=== PATIENT | male | born 1975 | race African-American/Black ===

== ENCOUNTER 2022-02-05 15:42 | Observation (INO) ==
[2022-02-05] MEDS ORDERED: DILAUDID INJ ONE ×2 (16:02→19:26)
[2022-02-05] MEDS ORDERED: DILAUDID INJ IVP ONE (16:03)
[2022-02-05] MEDS ORDERED: ZOFRAN INJ 4 MG VIAL IVP ONE (16:03)
[2022-02-05] MEDS ORDERED: ZOFRAN INJ 4 MG VIAL ONE ×2 (16:03→19:26)
--- NOTE | 2022-02-05 16:09 | DR.GENAD ---
HPI Time Seen Time Seen by Provider: 02/05/22 16:08 PCP Primary Care Physician: MARIXA Complaint/Symptoms Chief Complaint:: PT. C/O RIGHT INGUINAL HERNIA PAIN. PT. STATES HE HAS HAD IT FOR A WHILE BUT THE PAIN GOT SEVERE SHOWER DOORS AND PANELS FABRICATOR. COVID-19 Coronavirus risk:travel/contact w/high risk person: No Has patient experienced Coronavirus symptoms: No Source History Provided: Patient Mode of Arrival Mode of Arrival: Ambulatory Timing Onset of Chief Complaint: 02/05/22 PMH PMH Past Medical History: Yes Past Medical History: Depression and Hypertension Past Surgical History: No Surgical History: No History Family History History of Family Medical Conditions: Yes Family Medical History: Hypertension Social History Does patient currently use any type of tobacco product: No Have you used tobacco products in the last 12 months: No Type of Tobacco Use: None Does any household member use tobacco: No Alcohol Use: None Do you use any recreational Drugs:: No Lives With: Family Lives Where: Home Travel Risk Coronavirus risk:travel/contact w/high risk person: No Has patient experienced Coronavirus symptoms: No Infectious screening In the last 2 months have you had wt loss of >10#?: NO Have you had fever, night sweats or hemotysis?: No Have you traveled outside the country in the last 6 months?: No Isolation: Standard PE Vital Signs Vitals: Temperature 97.6 F Pulse Rate [Left Radial] 96 Pulse Rate 94 Respiratory Rate 25 Blood Pressure [Left Arm] 134/83 Blood Pressure 150/91 O2 Sat by Pulse Oximetry 99 ROR Labs Reviewed Result Diagrams: 02/05/22 15:55 02/05/22 15:55 Laboratory: WBC 6.0 X10^3/uL (3.6-10.0) 02/05/22 15:55 RBC 4.48 X10^6/uL (4.7-6.0) L 02/05/22 15:55 Hgb 13.9 g/dL (13.5-18.0) 02/05/22 15:55 Hct 40.1 % (42.0-54.0) L 02/05/22 15:55 MCV 89.5 fL (80.0-100.0) 02/05/22 15:55 MCH 31.0 pg (27.0-34.0) 02/05/22 15:55 MCHC 34.7 g/dL (33.0-35.0) 02/05/22 15:55 RDW 13.6 % (11.6-16.5) 02/05/22 15:55 Plt Count 242 X10^3/uL (150.0-450.0) 02/05/22 15:55 MPV 7.9 fL (7.4-11.0) 02/05/22 15:55 Neut % (Auto) 39.1 % (42.0-75.0) L 02/05/22 15:55 Lymph % (Auto) 44.1 % (21.0-51.0) 02/05/22 15:55 [place]mers % (Auto) 11.4 % (0.0-13.0) 02/05/22 15:55 Eos % (Auto) 4.9 % (0.9-2.9) H 02/05/22 15:55 Baso % (Auto) 0.5 % (0.2-1.0) 02/05/22 15:55 Neut # (Auto) 2.3 x10^3/uL (2.2-4.8) 02/05/22 15:55 Lymph # (Auto) 2.6 X10^3/uL (1.3-2.9) 02/05/22 15:55 Summers # (Auto) 0.7 x10^3/uL (0.3-0.8) 02/05/22 15:55 Eos # (Auto) 0.3 x10^3/uL (0.0-0.2) H 02/05/22 15:55 Baso # (Auto) 0.0 X10^3/uL (0.0-0.1) 02/05/22 15:55 Absolute Nucleated RBC 0.1 /100WBC 02/05/22 15:55 Sodium 139 mmol/L (136-145) 02/05/22 15:55 Corrected Sodium 139 mmol/L (136-145) 02/05/22 15:55 Potassium 4.2 mmol/L (3.5-5.1) 02/05/22 15:55 Chloride 105 mmol/L (98-107) 02/05/22 15:55 Carbon Dioxide 24.5 mmol/L (21-32) 02/05/22 15:55 BUN 14 mg/dL (7-18) 02/05/22 15:55 Creatinine 1.10 mg/dL (0.70-1.30) 02/05/22 15:55 Est GFR (MDRD) Af Amer > 60 (>60) 02/05/22 15:55 Est GFR (MDRD) Non-Af > 60 (>60) 02/05/22 15:55 Glucose 114 mg/dL (65-99) H 02/05/22 15:55 Calcium 8.5 mg/dL (8.5-10.1) 02/05/22 15:55 Corrected Calcium TNP 02/05/22 15:55 Total Bilirubin 0.30 mg/dL (0.2-1.0) 02/05/22 15:55 AST 34 Units/L (15-37) 02/05/22 15:55 ALT 60 Units/L (12-78) 02/05/22 15:55 Alkaline Phosphatase 79 Units/L (46-116) 02/05/22 15:55 Total Protein 8.0 g/dL (6.4-8.2) 02/05/22 15:55 Albumin 3.9 g/dL (3.4-5.0) 02/05/22 15:55 Globulin 4.1 g/dL (2.5-4.5) 02/05/22 15:55 Albumin/Globulin Ratio 1.0 Ratio (1.1-2.1) L 02/05/22 15:55 Amylase 91 Units/L (25-115) 02/05/22 15:55 Lipase 234 Units/L (73-393) 02/05/22 15:55 Opioid Opioid Risk Tool Age (Ramin box if 16-45): Yes History of Preadolescent Sexual Abuse: No Total: 1 Total Score Risk Category: Low Risk Copyright: Jase ELIZABETH predicting aberrant behaviors Discharge Plan Discharge Plan Patient Disposition: 01 HOME, SELF-CARE Condition: Stable Prescriptions: No Action clonidine HCl 0.1 mg tablet 1 tab PO QPM trazodone 50 mg tablet 1 tab PO QPM prazosin 1 mg capsule 1 cap PO QPM lisinopril 20 mg tablet 1 tab PO QDAY hydroxyzine pamoate 50 mg capsule 1 cap PO TID sertraline 50 mg tablet 1 tab PO QDAY Health Concerns: Post Hospitalization: new medications and changes needed to prevent readmission or further decline. Pt educated and given instructions on all concerns. Plan of Treatment: Continue with present treatment and follow up plan. Pt is to keep follow up appointment as instructed and take medications as ordered. Orders to Discharge Patient Discharge Orders: Transfer (Routine); Ordered 02/05/22 Ordered By: MYRA SHANKS Follow ups/Referrals Follow ups/Referrals: NFD,None [Primary Care Provider] - 3 days Instructions Stand Alone Forms: Precautions for COVID19, [facility], Patient Portal, Social Distancing
[2022-02-05] MEDS ORDERED: NS 1,000 ML IV 1,000 ML ONE (16:20)
[2022-02-05 16:26] LABS: BASOPHILS % (AUTO) 0.5 % (0.2-1.0); EOSINOPHILS # (AUTO) 0.3 x10^3/uL (0.0-0.2); EOSINOPHILS % (AUTO) 4.9 % (0.9-2.9); HEMATOCRIT 40.1 % (42.0-54.0); HEMOGLOBIN 13.9 g/dL (13.5-18.0); LYMPHOCYTES # (AUTO) 2.6 X10^3/uL (1.3-2.9); LYMPHOCYTES % (AUTO) 44.1 % (21.0-51.0); MEAN CORPUSCULAR HGB CONC 34.7 g/dL (33.0-35.0); MEAN CORPUSCULAR VOLUME 89.5 fL (80.0-100.0); MEAN PLATELET VOLUME 7.9 fL (7.4-11.0); MONOCYTES # (AUTO) 0.7 x10^3/uL (0.3-0.8); MONOCYTES % (AUTO) 11.4 % (0.0-13.0); NEUTROPHILS # (AUTO) 2.3 x10^3/uL (2.2-4.8); NEUTROPHILS % (AUTO) 39.1 % (42.0-75.0); RED BLOOD COUNT 4.48 X10^6/uL (4.7-6.0); RED CELL DISTRIBUTION WIDTH 13.6 % (11.6-16.5)
[2022-02-05 16:33] LABS: AMYLASE 91 Units/L (25-115); LIPASE 234 Units/L (73-393)
[2022-02-05 16:36] LABS: ALANINE AMINOTRANSFERASE 60 Units/L (12-78); ALBUMIN 3.9 g/dL (3.4-5.0); ALKALINE PHOSPHATASE 79 Units/L (46-116); ASPARTATE AMINO TRANSFERASE 34 Units/L (15-37); BLOOD UREA NITROGEN 14 mg/dL (7-18); CALCIUM 8.5 mg/dL (8.5-10.1); CARBON DIOXIDE 24.5 mmol/L (21-32); CHLORIDE 105 mmol/L (98-107); COR NA(FOR HYPERGLY) 139 mmol/L (136-145); SODIUM 139 mmol/L (136-145); eGFR NON BLACK RACES > 60 (>60)
[2022-02-05] MEDS ORDERED: NS 1,000 ML IV 1,000 ML IV SCH (17:00)
--- NOTE | 2022-02-05 18:00 | RAD ---
HISTORYPRE OP HERNIA Relevant Clinical InformationSTUDYCHEST, 1 VIEWCOMPARISONFINDINGSThe trachea is midline. The cardiac silhouette is unremarkable. The lungs are clear without focal infiltrate or effusion. The bony thorax is unremarkable.IMPRESSIONNo acute cardiopulmonary findings .Electronically signed by: Vitor Astorga (Feb 05, 2022 17:58:14)
[2022-02-05 18:27] LABS: BILIRUBIN,URINE NEGATIVE (NEGATIVE); BLOOD/HEMOGLOBIN,URINE NEGATIVE (NEGATIVE); GLUCOSE, URINE NEGATIVE (NEGATIVE); KETONES,URINE NEGATIVE (NEGATIVE); LEUKOCYTE ESTERASE ,URINE NEGATIVE (NEGATIVE); NITRITES,URINE NEGATIVE (NEGATIVE); PROTEIN,URINE NEGATIVE (NEGATIVE); UROBILINOGEN,URINE NORMAL (NORMAL)
[2022-02-05 18:30] LABS: COLOR,URINE YELLOW (YELLOW)
[2022-02-05 18:31] LABS: APPEARANCE,URINE CLEAR (CLEAR)
[2022-02-05] MEDS: DILAUDID INJ IVP PRN ×2 (19:32→23:37)
[2022-02-05] MEDS: ZOFRAN INJ 4 MG VIAL IVP PRN ×2 (19:32→23:38)
[2022-02-05] MEDS: D5 1/2 NS 1,000 ML 1,000 ML IV SCH (20:11)
[2022-02-05] MEDS ORDERED: ZESTRIL TAB 20 MG ONE (21:24)
[2022-02-05] MEDS: ZOLOFT PO SCH (21:28)
[2022-02-05] MEDS: VISTARIL PO SCH (21:29)
[2022-02-05] MEDS: ZESTRIL TAB 20 MG PO SCH (21:31)
[2022-02-05] MEDS: DESYREL PO SCH (21:32)
[2022-02-05] MEDS: CATAPRES TAB 0.1 MG PO SCH (21:33)
[2022-02-05] MEDS: ANCEF VIAL 1 GRAM IVP SCH (21:39)
[2022-02-05 22:35] VITALS: BMI 26.2
[2022-02-06] MEDS: D5 1/2 NS 1,000 ML 1,000 ML IV SCH ×5 (02:39→21:30)
[2022-02-06] MEDS: DILAUDID INJ IVP PRN ×5 (04:18→22:40)
[2022-02-06] MEDS: ANCEF VIAL 1 GRAM IVP SCH ×3 (05:17→21:01)
[2022-02-06] MEDS: VISTARIL PO SCH ×3 (05:18→21:01)
[2022-02-06 05:58] LABS: BASOPHILS % (AUTO) 0.4 % (0.2-1.0); EOSINOPHILS # (AUTO) 0.1 x10^3/uL (0.0-0.2); EOSINOPHILS % (AUTO) 0.9 % (0.9-2.9); HEMATOCRIT 36.9 % (42.0-54.0); LYMPHOCYTES # (AUTO) 1.4 X10^3/uL (1.3-2.9); LYMPHOCYTES % (AUTO) 19.4 % (21.0-51.0); MEAN CORPUSCULAR HEMOGLOBIN 31.3 pg (27.0-34.0); MEAN CORPUSCULAR HGB CONC 35.1 g/dL (33.0-35.0); MEAN CORPUSCULAR VOLUME 89.2 fL (80.0-100.0); MEAN PLATELET VOLUME 8.1 fL (7.4-11.0); MONOCYTES # (AUTO) 0.6 x10^3/uL (0.3-0.8); MONOCYTES % (AUTO) 8.2 % (0.0-13.0); NEUTROPHILS # (AUTO) 5.1 x10^3/uL (2.2-4.8); NEUTROPHILS % (AUTO) 71.1 % (42.0-75.0); RED BLOOD COUNT 4.14 X10^6/uL (4.7-6.0); RED CELL DISTRIBUTION WIDTH 13.7 % (11.6-16.5); WHITE BLOOD COUNT 7.2 X10^3/uL (3.6-10.0)
[2022-02-06 06:04] LABS: ALANINE AMINOTRANSFERASE 50 Units/L (12-78); ALBUMIN 3.7 g/dL (3.4-5.0); ALKALINE PHOSPHATASE 66 Units/L (46-116); ASPARTATE AMINO TRANSFERASE 27 Units/L (15-37); BLOOD UREA NITROGEN 13 mg/dL (7-18); CALCIUM 8.3 mg/dL (8.5-10.1); CARBON DIOXIDE 22.6 mmol/L (21-32); CHLORIDE 105 mmol/L (98-107); COR NA(FOR HYPERGLY) 137 mmol/L (136-145); CREATININE 0.96 mg/dL (0.70-1.30); SODIUM 137 mmol/L (136-145); TOTAL PROTEIN 7.6 g/dL (6.4-8.2); eGFR NON BLACK RACES > 60 (>60)
[2022-02-06] MEDS ORDERED: LR 1,000 ML IV 1,000 ML IV ONE (07:29)
[2022-02-06] MEDS ORDERED: ANCEF VIAL 1 GRAM ONE (07:29)
[2022-02-06] MEDS ORDERED: NS 100 ML IV 100 ML ONE ×2 (07:29→20:48)
[2022-02-06] MEDS ORDERED: DIPRIVAN VIAL 20 ML ONE (07:59)
[2022-02-06] MEDS ORDERED: FENTANYL VIAL INJ 100 mcg ONE (08:00)
[2022-02-06] MEDS ORDERED: VERSED ONE (08:00)
[2022-02-06] MEDS ORDERED: BRIDION ONE (08:02)
[2022-02-06] MEDS ORDERED: ZOFRAN INJ 4 MG VIAL ONE (08:02)
[2022-02-06] MEDS ORDERED: PEPCID 20 MG VIAL ONE (08:02)
[2022-02-06] MEDS ORDERED: ZEMURON 100 MG VIAL ONE (08:02)
[2022-02-06] MEDS ORDERED: OFIRMEV IV 1000 MG VIAL 1,000 MG/100 ML VIAL IV ONE (08:02)
[2022-02-06] MEDS ORDERED: KETAMINE HCL ONE (08:08)
[2022-02-06] MEDS ORDERED: XYLOCAINE 2 % (PLAIN) ONE (08:08)
[2022-02-06] MEDS ORDERED: POLYMYXIN B SULFATE ONE (08:13)
[2022-02-06] MEDS ORDERED: DECADRON INJ ONE (08:22)
[2022-02-06] MEDS ORDERED: ROBINUL ONE (08:29)
[2022-02-06] MEDS ORDERED: NEO-SYNEPHRINE INJ ONE (08:32)
[2022-02-06] MEDS ORDERED: MARCAINE 0.5% ONE (09:22)
[2022-02-06] MEDS ORDERED: DILAUDID INJ ONE ×2 (09:27→10:19)
[2022-02-06] MEDS ORDERED: BARHEMSYS INJ IVP PRN (10:03)
[2022-02-06] MEDS ORDERED: PHENERGAN INJ 25 MG IM PRN (10:03)
[2022-02-06] MEDS ORDERED: BENADRYL INJ 50 MG VIAL IVP PRN (10:03)
[2022-02-06] MEDS ORDERED: ZOFRAN INJ 4 MG VIAL IVP PRN (10:03)
[2022-02-06] MEDS ORDERED: BARHEMSYS INJ ONE (10:23)
[2022-02-06] MEDS ORDERED: ZESTRIL TAB 20 MG ONE (10:53)
[2022-02-06] MEDS: ZOLOFT PO SCH (10:55)
[2022-02-06] MEDS: ZESTRIL TAB 20 MG PO SCH (11:03)
[2022-02-06] MEDS: CATAPRES TAB 0.1 MG PO SCH (21:00)
[2022-02-06] MEDS: DESYREL PO SCH (21:00)
[2022-02-07] MEDS ORDERED: NS 100 ML IV 100 ML ONE (04:28)
[2022-02-07] MEDS: ANCEF VIAL 1 GRAM IVP SCH ×2 (05:20→14:33)
[2022-02-07] MEDS: DILAUDID INJ IVP PRN (05:50)
[2022-02-07] MEDS: VISTARIL PO SCH ×2 (05:54→14:33)
[2022-02-07] MEDS ORDERED: ZESTRIL TAB 20 MG ONE (08:59)
[2022-02-07] MEDS: ZOLOFT PO SCH (09:07)
[2022-02-07] MEDS: ZESTRIL TAB 20 MG PO SCH (09:07)
[2022-02-07] MEDS ORDERED: DULCOLAX SUPPOSITORY 10 MG RECTAL ONE (10:21)
[2022-02-07 14:30] VITALS: BP 129/73
[2022-02-07] MEDS: D5 1/2 NS 1,000 ML 1,000 ML IV SCH (14:34)
== END 2022-02-07 17:10 | disposition home or self-care (01) ==
LOC: MED/SURG 15:42 → ER 15:42 → MED/SURG 19:34
PROVIDERS: ADMIT Surgery; ATTEND Surgery
DX: I10 Essential (primary) hypertension; K40.30 Unilateral inguinal hernia, with obstruction, without gangrene, not specified as recurrent; Z20.822 Contact with and (suspected) exposure to COVID-19

== ENCOUNTER 2022-02-12 15:38 | Observation (INO) ==
[2022-02-12 18:08] LABS: BASOPHILS # (AUTO) 0.1 X10^3/uL (0.0-0.1); BASOPHILS % (AUTO) 0.6 % (0.2-1.0); EOSINOPHILS # (AUTO) 0.1 x10^3/uL (0.0-0.2); HEMATOCRIT 33.8 % (42.0-54.0); HEMOGLOBIN 11.8 g/dL (13.5-18.0); LYMPHOCYTES # (AUTO) 1.6 X10^3/uL (1.3-2.9); LYMPHOCYTES % (AUTO) 14.5 % (21.0-51.0); MEAN CORPUSCULAR HGB CONC 34.8 g/dL (33.0-35.0); MEAN PLATELET VOLUME 7.2 fL (7.4-11.0); MONOCYTES # (AUTO) 1.2 x10^3/uL (0.3-0.8); MONOCYTES % (AUTO) 10.7 % (0.0-13.0); NEUTROPHILS # (AUTO) 8.1 x10^3/uL (2.2-4.8); NEUTROPHILS % (AUTO) 73.2 % (42.0-75.0); RED CELL DISTRIBUTION WIDTH 13.4 % (11.6-16.5); WHITE BLOOD COUNT 11.1 X10^3/uL (3.6-10.0)
[2022-02-12 18:17] LABS: ALANINE AMINOTRANSFERASE 25 Units/L (12-78); ALBUMIN 3.1 g/dL (3.4-5.0); ALKALINE PHOSPHATASE 67 Units/L (46-116); ASPARTATE AMINO TRANSFERASE 18 Units/L (15-37); BLOOD UREA NITROGEN 10 mg/dL (7-18); CALCIUM 8.4 mg/dL (8.5-10.1); CARBON DIOXIDE 30.3 mmol/L (21-32); CHLORIDE 102 mmol/L (98-107); COR CA(FOR HYPOALB) 9.1 mg/dL (8.5-10.1); CREATININE 1.03 mg/dL (0.70-1.30); SODIUM 138 mmol/L (136-145); TOTAL PROTEIN 7.4 g/dL (6.4-8.2); eGFR NON BLACK RACES > 60 (>60)
[2022-02-12 18:35] LABS: BILIRUBIN,URINE NEGATIVE (NEGATIVE); BLOOD/HEMOGLOBIN,URINE NEGATIVE (NEGATIVE); GLUCOSE, URINE NEGATIVE (NEGATIVE); KETONES,URINE NEGATIVE (NEGATIVE); LEUKOCYTE ESTERASE ,URINE NEGATIVE (NEGATIVE); NITRITES,URINE NEGATIVE (NEGATIVE); PROTEIN,URINE NEGATIVE (NEGATIVE); UROBILINOGEN,URINE NORMAL (NORMAL)
[2022-02-12 19:34] LABS: APPEARANCE,URINE CLEAR (CLEAR); COLOR,URINE STRAW (YELLOW)
--- NOTE | 2022-02-12 19:44 | CT ---
HISTORYABD PAIN, SWOLLEN GROIN; HAD SURGERY 3 DAYS AGOSTUDYABDOMEN/PELVIS WITH CONCOMPARISONNone.TECHNIQUESerial axial images were obtained from the lung bases to the pubic symphysis with the administration of intravenous contrast. Soft tissue, lung windows and bone window images were interpreted. Dose reduction techniques were utilized.FINDINGSThe heart is not enlarged. The lung bases are clear.The liver is normal in size and reveals subtle low-attenuation lesion within the right hepatic lobe most likely representing a right hepatic lobe cyst. There is no intrahepatic biliary ductal dilatation or obvious common bile duct dilatation. The gallbladder is contracted. The spleen is unremarkable, revealing no focal lesions. The pancreas and adrenal glands are unremarkable.The aorta and inferior vena cava are unremarkable. No significant para-aortic or retroperitoneal lymphadenopathy is identified.The kidneys are unremarkable. There are no radiopaque renal, ureteric or urinary bladder calculi. There is no hydronephrosis. There is no obstructive uropathy.Examination of the bowel, greater omentum and mesentery reveals multiple mesenteric lymph nodes within the right lower quadrant which represent reactive lymph nodes. The appendix is unremarkable with no evidence for acute appendicitis. Examination of the pelvis reveals no pathologic masses or fluid collections. The urinary bladder is circumferentially thickened and has an appearance of acute cystitis type changes with mild surrounding inflammatory changes within the deep pelvis. There are pelvic phleboliths. Within the right groin there is what appears to be an entrapped small bowel loop extending through the right rectus abdominus muscle within the right groin and subjacent to surgical skin deanne within the right groin. There may be a herniated compressed small-bowel loop extending through the inguinal canal adjacent to the spermatic cord on the right. The spermatic cord is markedly swollen and there are marked inflammatory changes involving the pubis symphysis and surrounding soft tissues of the right groin. There is vascular engorgement extending into the right testicular sac consistent with a right-sided varicocele and gas pockets seen within the upper right testicular sac. There are engorged varices seen within the right superior testicle. There is a right hydrocele. There is edema within the testicular sac and surrounding the penile shaft.IMPRESSION1. Findings concerning for an incarcerated right inguinal hernia with herniation of probable small bowel loop through the defect extending to the right testicular sac with marked inflammatory changes, thickening of the spermatic cord on the right as well as phlegmonous changes involving the right groin, right spermatic cord, right inguinal canal with probable herniation of a small bowel loop into the right testicular sac and a very prominent varicocele extending to the right greater than left testicular sac. A moderate right hydrocele is also seen with edema involving the testicular sac and penile shaft. A surgical consult is highly recommended for this finding.2. Query acute cystitis.Electronically signed by: Izabel Head (Feb 12, 2022 19:42:34)
--- NOTE | 2022-02-12 19:54 | DR.SCROTAL ---
HPI Time Seen Time Seen by Provider: 02/12/22 19:51 PCP Primary Care Physician: NONE HPI Comment HPI Comment: According to pt he had right inguinal hernia surgey on 02/06 ,However he has noted worsening of the pain in his scrotum and right groin for the past 2 days .pain moderate to severe intensity .Here to have it checked Complaint Chief Complaint Doctors Comments: right scrotal pain Chief Complaint:: PT STATES HE HAD SURGERY 3 DAYS AGO HERE WITH DR SOSA REMOVED A HERNIA ON HIS GROIN AND HE HAS BEEN HAVING PAIN AND SWELLING IN HIS GROIN AREA AND DENIES BURNING WHEN HE URINATES. Self Treatment fo Chief Complaint: PERCOCET Source History Provided: Patient Mode of Arrival Mode of Arrival: Ambulatory Timing Onset of Chief Complaint: 02/09/22 Came on: Gradually Context History of: Recent post-op Severity Severity: Moderate Associated signs and syptoms Associated signs & symptoms: Fever and Abdonimal pain PMH PMH Past Medical History: Yes Past Medical History: Anxiety, Depression and Hypertension Past Surgical History: Yes Surgical History: No History Past Surgical History Comment: HERNIA REPAIR Family History History of Family Medical Conditions: No Family Medical History: Hypertension Social History Does patient currently use any type of tobacco product: No Have you used tobacco products in the last 12 months: No Type of Tobacco Use: None Does any household member use tobacco: No Alcohol Use: None Do you use any recreational Drugs:: No Lives With: Friend and Other Lives Where: Home Travel Risk Coronavirus risk:travel/contact w/high risk person: No Has patient experienced Coronavirus symptoms: No Infectious screening In the last 2 months have you had wt loss of >10#?: NO Have you had fever, night sweats or hemotysis?: No Have you traveled outside the country in the last 6 months?: No Isolation: Standard ROS Review of Systems Constitutional: Fever Eyes: No Symptoms Reported ENTM: No Symptoms Reported Respiratoy: No Symptoms Reported Cardiovascular: No Symptoms Reported Gastrointestinal/Abdominal: See HPI and Abdominal Pain Genitourinary: Pain (inguinal right ) Musculoskeletal: No Symptoms Reported Integumentary: No Symptoms Reported PE Vital Signs Vitals: Temperature 99.4 F Pulse Rate 100 Respiratory Rate 22 Blood Pressure [Right Arm] 112/69 Blood Pressure [Left Arm] 129/73 Blood Pressure 122/79 O2 Sat by Pulse Oximetry 99 General Limitations: No Limitations General Appearance: Alert and In Distress Head Head Exam: Normal Inspection and Atraumatic Eyes Eye exam: Normal Appearance, PERRL and EOMI ENT ENT Exam: Normal Oropharynx and Mucous Membranes Moist Neck Neck Exam: Normal Inspection Chest Chest Inspection: Normal Inspection and Symmetric Chest Wall Rise Respiratory Respiratory Exam: Normal Lung Sounds Bilat Respiratory Exam: Bilateral: Clear to Auscultation Cardiovascular Cardiovascular Exam: +S1 and +S2 Abdominal Exam Abdominal Exam: Soft, Tenderness, Hernia and Other (large tender scrotum ) Abdominal Tenderness: Suprapubic and Other (right groin with stapled post op scar) Genitourinary Exam: Male: Scrotal Swelling and Inguinal Hernial MDM Differential Diagnosis Differential Diagnosis: Abcess, Cellulitis, Epididymitis, Inguinal hernia and Post-op complication COURSE Treatment Treatment: labs ct abdomen and plevis IV morphine ROR Labs Reviewed Result Diagrams: 02/12/22 17:57 02/12/22 17:57 Laboratory: WBC 11.1 X10^3/uL (3.6-10.0) H 02/12/22 17:57 RBC 3.80 X10^6/uL (4.7-6.0) L 02/12/22 17:57 Hgb 11.8 g/dL (13.5-18.0) L 02/12/22 17:57 Hct 33.8 % (42.0-54.0) L 02/12/22 17:57 MCV 89.0 fL (80.0-100.0) 02/12/22 17:57 MCH 31.0 pg (27.0-34.0) 02/12/22 17:57 MCHC 34.8 g/dL (33.0-35.0) 02/12/22 17:57 RDW 13.4 % (11.6-16.5) 02/12/22 17:57 Plt Count 305 X10^3/uL (150.0-450.0) 02/12/22 17:57 MPV 7.2 fL (7.4-11.0) L 02/12/22 17:57 Neut % (Auto) 73.2 % (42.0-75.0) 02/12/22 17:57 Lymph % (Auto) 14.5 % (21.0-51.0) L 02/12/22 17:57 [place] % (Auto) 10.7 % (0.0-13.0) 02/12/22 17:57 Eos % (Auto) 1.0 % (0.9-2.9) 02/12/22 17:57 Baso % (Auto) 0.6 % (0.2-1.0) 02/12/22 17:57 Neut # (Auto) 8.1 x10^3/uL (2.2-4.8) H 02/12/22 17:57 Lymph # (Auto) 1.6 X10^3/uL (1.3-2.9) 02/12/22 17:57 [place] # (Auto) 1.2 x10^3/uL (0.3-0.8) H 02/12/22 17:57 Eos # (Auto) 0.1 x10^3/uL (0.0-0.2) 02/12/22 17:57 Baso # (Auto) 0.1 X10^3/uL (0.0-0.1) 02/12/22 17:57 Absolute Nucleated RBC 0.0 /100WBC 02/12/22 17:57 Sodium 138 mmol/L (136-145) 02/12/22 17:57 Corrected Sodium TNP 02/12/22 17:57 Potassium 3.8 mmol/L (3.5-5.1) 02/12/22 17:57 Chloride 102 mmol/L (98-107) 02/12/22 17:57 Carbon Dioxide 30.3 mmol/L (21-32) 02/12/22 17:57 BUN 10 mg/dL (7-18) 02/12/22 17:57 Creatinine 1.03 mg/dL (0.70-1.30) 02/12/22 17:57 Est GFR (MDRD) Af Amer > 60 (>60) 02/12/22 17:57 Est GFR (MDRD) Non-Af > 60 (>60) 02/12/22 17:57 Glucose 78 mg/dL (65-99) 02/12/22 17:57 Calcium 8.4 mg/dL (8.5-10.1) L 02/12/22 17:57 Corrected Calcium 9.1 mg/dL (8.5-10.1) 02/12/22 17:57 Total Bilirubin 0.10 mg/dL (0.2-1.0) L 02/12/22 17:57 AST 18 Units/L (15-37) 02/12/22 17:57 ALT 25 Units/L (12-78) 02/12/22 17:57 Alkaline Phosphatase 67 Units/L (46-116) 02/12/22 17:57 Total Protein 7.4 g/dL (6.4-8.2) 02/12/22 17:57 Albumin 3.1 g/dL (3.4-5.0) L 02/12/22 17:57 Globulin 4.3 g/dL (2.5-4.5) 02/12/22 17:57 Albumin/Globulin Ratio 0.7 Ratio (1.1-2.1) L 02/12/22 17:57 Specimen Type Clean catch urine 02/12/22 18:26 Urine Color Straw (YELLOW) 02/12/22 18:26 Urine Appearance Clear (CLEAR) 02/12/22 18:26 Urine pH 6.0 (5.0 - 8.0) 02/12/22 18:26 Ur Specific [place] 1.015 (1.000-1.030) 02/12/22 18:26 Urine Protein Negative (NEGATIVE) 02/12/22 18:26 Urine Glucose (UA) Negative (NEGATIVE) 02/12/22 18:26 Urine Ketones Negative (NEGATIVE) 02/12/22 18:26 Urine Blood Negative (NEGATIVE) 02/12/22 18:26 Urine Nitrite Negative (NEGATIVE) 02/12/22 18:26 Urine Bilirubin Negative (NEGATIVE) 02/12/22 18:26 Urine Urobilinogen Normal (NORMAL) 02/12/22 18:26 Ur Leukocyte Esterase Negative (NEGATIVE) 02/12/22 18:26 Opioid Opioid Risk Tool Age (Ramin box if 16-45): No History of Preadolescent Sexual Abuse: No Total: 0 Total Score Risk Category: Low Risk Copyright: Jase ELIZABETH predicting aberrant behaviors Discharge Plan Diagnosis Discharge Problem: Acute postoperative pain of right groin, History of inguinal hernia repair, Leucocytosis, Acute pain in scrotum Discharge Plan Patient Disposition: 09 ADMITTED INPATIENT Condition: Stable Prescriptions: No Action clonidine HCl 0.1 mg tablet 1 tab PO QPM trazodone 50 mg tablet 1 tab PO QPM prazosin 1 mg capsule 1 cap PO QPM lisinopril 20 mg tablet 1 tab PO QDAY hydroxyzine pamoate 50 mg capsule 1 cap PO TID sertraline 50 mg tablet 1 tab PO QDAY oxycodone-acetaminophen [Percocet] 5-325 mg Tablet 1 tab PO Q4H MDD 6 PRN (Reason: Pain) Qty: 20 0RF Health Concerns: Post Hospitalization: new medications and changes needed to prevent readmission or further decline. Pt educated and given instructions on all concerns. Plan of Treatment: Continue with present treatment and follow up plan. Pt is to keep follow up appointment as instructed and take medications as ordered. Follow ups/Referrals Follow ups/Referrals: NFD,None [Primary Care Provider] - 3 days Instructions Stand Alone Forms: [facility], Patient Portal, Social Distancing ADDITIONAL NOTES Additional Notes Additional Notes: spoek with surgery Dr Richards Discussed albs and ct scan agreed to admit for observation and antibiotics
[2022-02-12] MEDS ORDERED: MORPHINE SULFATE INJ 2 MG INJ IVP ONE (19:59)
[2022-02-12] MEDS ORDERED: MORPHINE SULFATE INJ 2 MG INJ ONE (20:01)
[2022-02-12] MEDS ORDERED: ANCEF VIAL 1 GRAM ONE (20:01)
[2022-02-12] MEDS: ANCEF VIAL 1 GRAM IVP SCH ×2 (20:09→21:49)
[2022-02-12] MEDS ORDERED: DESYREL PO SCH (21:00)
[2022-02-12] MEDS ORDERED: CATAPRES TAB 0.1 MG PO SCH (21:00)
[2022-02-12 21:31] VITALS: BMI 27.4
[2022-02-12] MEDS: VISTARIL PO SCH (21:46)
[2022-02-12] MEDS: ZOLOFT PO SCH (21:46)
[2022-02-12] MEDS: ZESTRIL TAB 20 MG PO SCH (21:49)
[2022-02-13] MEDS: MORPHINE SULFATE INJ 2 MG INJ IVP PRN ×2 (03:30→11:49)
[2022-02-13 05:05] LABS: BASOPHILS # (AUTO) 0.1 X10^3/uL (0.0-0.1); BASOPHILS % (AUTO) 0.6 % (0.2-1.0); EOSINOPHILS # (AUTO) 0.2 x10^3/uL (0.0-0.2); EOSINOPHILS % (AUTO) 1.9 % (0.9-2.9); HEMATOCRIT 31.8 % (42.0-54.0); HEMOGLOBIN 11.3 g/dL (13.5-18.0); LYMPHOCYTES # (AUTO) 1.9 X10^3/uL (1.3-2.9); LYMPHOCYTES % (AUTO) 20.4 % (21.0-51.0); MEAN CORPUSCULAR HEMOGLOBIN 31.1 pg (27.0-34.0); MEAN CORPUSCULAR HGB CONC 35.5 g/dL (33.0-35.0); MEAN CORPUSCULAR VOLUME 87.8 fL (80.0-100.0); MEAN PLATELET VOLUME 7.6 fL (7.4-11.0); MONOCYTES % (AUTO) 10.9 % (0.0-13.0); NEUTROPHILS # (AUTO) 6.3 x10^3/uL (2.2-4.8); NEUTROPHILS % (AUTO) 66.2 % (42.0-75.0); RED BLOOD COUNT 3.63 X10^6/uL (4.7-6.0); RED CELL DISTRIBUTION WIDTH 13.3 % (11.6-16.5); WHITE BLOOD COUNT 9.5 X10^3/uL (3.6-10.0)
[2022-02-13] MEDS: ANCEF VIAL 1 GRAM IVP SCH (05:11)
[2022-02-13 05:17] LABS: ALANINE AMINOTRANSFERASE 22 Units/L (12-78); ALBUMIN 2.7 g/dL (3.4-5.0); ALKALINE PHOSPHATASE 61 Units/L (46-116); ASPARTATE AMINO TRANSFERASE 17 Units/L (15-37); BLOOD UREA NITROGEN 9 mg/dL (7-18); CALCIUM 7.9 mg/dL (8.5-10.1); CHLORIDE 103 mmol/L (98-107); COR CA(FOR HYPOALB) 8.9 mg/dL (8.5-10.1); CREATININE 0.92 mg/dL (0.70-1.30); SODIUM 138 mmol/L (136-145); TOTAL PROTEIN 6.6 g/dL (6.4-8.2); eGFR NON BLACK RACES > 60 (>60)
[2022-02-13] MEDS ORDERED: POTASSIUM CHLORIDE LIQ 20 MEQ UDC PO PRN (05:32)
[2022-02-13] MEDS ORDERED: POTASSIUM CHL 60 MEQ/NS 0.45% 500 ML IV PRN (05:32)
[2022-02-13] MEDS ORDERED: K-DUR TAB 20 MEQ PO PRN (05:32)
[2022-02-13] MEDS ORDERED: K-RIDER 10 MEQ/NS 100 ML 10 MEQ/100 ML BAG IV PRN (05:32)
[2022-02-13] MEDS ORDERED: POTASSIUM CHL 40 MEQ/NS 0.45% 500 ML IV PRN (05:32)
[2022-02-13] MEDS ORDERED: KLOR-CON PO PRN (05:32)
[2022-02-13] MEDS ORDERED: MICRO K EXTEN CAP 10 MEQ PO PRN (05:32)
[2022-02-13] MEDS: VISTARIL PO SCH (06:08)
[2022-02-13] MEDS ORDERED: NS 100 ML IV 100 ML ONE (06:24)
[2022-02-13] MEDS: MAGNESIUM SULFATE 1 GRAM/100 mL PREMIX 1 G/100 ML BAG IV PRN ×2 (06:35→08:24)
[2022-02-13] MEDS ORDERED: ZESTRIL TAB 20 MG ONE (08:03)
[2022-02-13] MEDS: ZESTRIL TAB 20 MG PO SCH (08:23)
[2022-02-13] MEDS: ZOLOFT PO SCH (08:23)
[2022-02-13] MEDS ORDERED: XYLOCAINE 1 % (PLAIN) ONE (08:57)
[2022-02-13 12:00] VITALS: BP 110/55
[2022-02-13] MEDS ORDERED: MILK OF MAGNESIA PO SCH (14:00)
== END 2022-02-13 14:05 | disposition home or self-care (01) ==
LOC: ER 15:38 → MED/SURG 15:38
PROVIDERS: ADMIT Surgery; ATTEND Surgery
DX: Z98.890 Other specified postprocedural states; R10.32 Left lower quadrant pain; I10 Essential (primary) hypertension; Z20.822 Contact with and (suspected) exposure to COVID-19; G89.18 Other acute postprocedural pain; N50.82 Scrotal pain

== ENCOUNTER 2023-02-05 13:10 | Observation (INO) ==
[2023-02-05 13:20] VITALS: BMI 22.6
--- NOTE | 2023-02-05 13:34 | DR.DETOX ---
HPI Time seen Time Seen by Provider: 02/05/23 13:34 Complaint/Symptoms Chief Complaint Doctors Comments: 47 y/o male presents for evaluation. Pt was in the heat yesterday. + syncopal episode. Pt had drank some alcohol, reportedly did some Moly. No injuries from passing out. Pt decided to quit drinking, doing drugs. He contacted [facility], was accepted for a detox admission there, needs medical clearance. Pt having generalized weakness, otherwise feeling well. Pt not suicidal/homicidal. No fever, chest pain, bowel or bladder issues. Chief Complaint:: pt states he was in the heat all day mowing grass after that he smoked some bhavna and drunk a couple liquor drinks. After smoking the bhavna he started feeling hot sweaty and weak and passed out and vomiting. pt denies a ny suicidal ideations or homeicidal ideations states he just wants to detox. pt also states he feels like he has been worthless and very depressed. COVID-19 Coronavirus risk:travel/contact w/high risk person: No Has patient experienced Coronavirus symptoms: No Nurses notes reviewed Nurses Notes Review: Yes Source History Provided: Patient Mode of arrival Mode of Arrival: Ambulatory Timing Onset of Chief Complaint: 02/05/23 PMH PMH Past Medical History: Yes Past Medical History: Hypertension Past Surgical History: Yes Surgical History: Other Past Surgical History Comment: hernia Family History History of Family Medical Conditions: Yes Family Medical History: Hypertension Social History Does patient currently use any type of tobacco product: Yes Have you used tobacco products in the last 12 months: Yes Type of Tobacco Use: Cigarettes Does any household member use tobacco: Yes Alcohol Use: Occasionally Do you use any recreational Drugs:: Yes (marijuana) Lives With: Spouse Lives Where: Home Travel Risk Coronavirus risk:travel/contact w/high risk person: No Has patient experienced Coronavirus symptoms: No Infectious screening In the last 2 months have you had wt loss of >10#?: NO Have you had fever, night sweats or hemotysis?: No Have you traveled outside the country in the last 6 months?: No Isolation: Standard ROS Review of Systems Constitutional: Malaise and Weakness Eyes: No Symptoms Reported ENTM: No Symptoms Reported Respiratoy: No Symptoms Reported Cardiovascular: No Symptoms Reported Gastrointestinal/Abdominal: No Symptoms Reported Genitourinary: No Symptoms Reported Neurological: Weakness Musculoskeletal: No Symptoms Reported Integumentary: No Symptoms Reported All Other Systems: Reviewed and Negative PE Vital Signs Vitals: Vital Signs Temperature 99.0 F Pulse Rate 97 Respiratory Rate 18 Blood Pressure 125/84 O2 Sat by Pulse Oximetry 98 General General Appearance: Alert and In No Apparent Distress Head Head Exam: Normal Inspection, Atraumatic and Normocephalic Eyes Eye exam: PERRL and EOMI ENT ENT Exam: Normal Oropharynx and Mucous Membranes Moist Neck Neck Exam: Normal Inspection and Full ROM; negative Tenderness Respiratory Respiratory Exam: Normal Lung Sounds Bilat; negative Accessory Muscle Use or Respiratory Distress Cardiovascular Cardiovascular Exam: Regular Rate, Normal Rhythm and Normal Heart Sounds Abdominal Exam Abdominal Exam: Normal Bowel Sounds and Soft; negative Tenderness Extremities Extremities Exam: Normal Inspection; negative Edema Back Back Exam: Normal Inspection Neurologic Neurological Exam: Alert, Oriented X3 and CN II-XII Intact; negative Motor Sensory Deficit Skin Skin Exam: Warm and Dry COURSE Treatment Treatment: 47 y/o male presents for medical clearance for detox. + syncopal episode after being in the heat yesterday. Decided to quit drugs, here for c learance. W/u initiated. Pt given IV fluids. 1501 - + elevated Cr, CK - c/w acute kidney injury, & rhabdomyolysis. Discussed with Dr Charles, accepts the admission. ROR Labs Reviewed Laboratory Results Reviewed?: Yes 02/05/23 13:32 02/05/23 13:32 Laboratory: WBC 10.6 X10^3/uL (3.6-10.0) H 02/05/23 13:32 RBC 5.28 X10^6/uL (4.7-6.0) 02/05/23 13:32 Hgb 16.3 g/dL (13.5-18.0) 02/05/23 13:32 Hct 47.2 % (42.0-54.0) 02/05/23 13:32 MCV 89.4 fL (80.0-100.0) 02/05/23 13:32 MCH 30.8 pg (27.0-34.0) 02/05/23 13:32 MCHC 34.5 g/dL (33.0-35.0) 02/05/23 13:32 RDW 15.0 % (11.6-16.5) 02/05/23 13:32 Plt Count 287 X10^3/uL (150.0-450.0) 02/05/23 13:32 MPV 8.1 fL (7.4-11.0) 02/05/23 13:32 Neut % (Auto) 73.4 % (42.0-75.0) 02/05/23 13:32 Lymph % (Auto) 18.6 % (21.0-51.0) L 02/05/23 13:32 Larue % (Auto) 7.3 % (0.0-13.0) 02/05/23 13:32 Eos % (Auto) 0.4 % (0.9-2.9) L 02/05/23 13:32 Baso % (Auto) 0.3 % (0.2-1.0) 02/05/23 13:32 Neut # (Auto) 7.8 x10^3/uL (2.2-4.8) H 02/05/23 13:32 Lymph # (Auto) 2.0 X10^3/uL (1.3-2.9) 02/05/23 13:32 Larue # (Auto) 0.8 x10^3/uL (0.3-0.8) 02/05/23 13:32 Eos # (Auto) 0.0 x10^3/uL (0.0-0.2) 02/05/23 13:32 Baso # (Auto) 0.0 X10^3/uL (0.0-0.1) 02/05/23 13:32 Absolute Nucleated RBC 0.1 /100WBC 02/05/23 13:32 Sodium 138 mmol/L (136-145) 02/05/23 13:32 Corrected Sodium 138 mmol/L (136-145) 02/05/23 13:32 Potassium 3.6 mmol/L (3.5-5.1) 02/05/23 13:32 Chloride 96 mmol/L (98-107) L 02/05/23 13:32 Carbon Dioxide 27.4 mmol/L (21-32) 02/05/23 13:32 BUN 32 mg/dL (7-18) H 02/05/23 13:32 Creatinine 3.40 mg/dL (0.70-1.30) H 02/05/23 13:32 Est GFR (MDRD) Af Amer 25 (>60) L 02/05/23 13:32 Est GFR (MDRD) Non-Af 21 (>60) L 02/05/23 13:32 Glucose 114 mg/dL (65-99) H 02/05/23 13:32 Calcium 9.5 mg/dL (8.5-10.1) 02/05/23 13:32 Corrected Calcium TNP 02/05/23 13:32 Total Bilirubin 0.30 mg/dL (0.2-1.0) 02/05/23 13:32 AST 37 Units/L (15-37) 02/05/23 13:32 ALT 24 Units/L (12-78) 02/05/23 13:32 Alkaline Phosphatase 89 Units/L (46-116) 02/05/23 13:32 Creatine Kinase 1240 Units/L (39-308) H 02/05/23 13:32 Troponin I High Sens 8.0 ng/L (4.0-60.0) 02/05/23 13:32 Total Protein 9.4 g/dL (6.4-8.2) H 02/05/23 13:32 Albumin 4.4 g/dL (3.4-5.0) 02/05/23 13:32 Globulin 5.0 g/dL (2.5-4.5) H 02/05/23 13:32 Albumin/Globulin Ratio 0.9 Ratio (1.1-2.1) L 02/05/23 13:32 Lipase 120 Units/L (73-393) 02/05/23 13:32 Specimen Type Clean catch urine 02/05/23 13:42 Urine Color Dark yellow (YELLOW) 02/05/23 13:42 Urine Appearance Hazy (CLEAR) 02/05/23 13:42 Urine pH 5.0 (5.0 - 8.0) 02/05/23 13:42 Ur Specific [place] 1.030 (1.000-1.030) 02/05/23 13:42 Urine Protein 2+ (NEGATIVE) 02/05/23 13:42 Urine Glucose (UA) Negative (NEGATIVE) 02/05/23 13:42 Urine Ketones 1+ (NEGATIVE) 02/05/23 13:42 Urine Blood Negative (NEGATIVE) 02/05/23 13:42 Urine Nitrite Negative (NEGATIVE) 02/05/23 13:42 Urine Bilirubin 1+ (NEGATIVE) 02/05/23 13:42 Urine Urobilinogen 1+ (NORMAL) 02/05/23 13:42 Ur Leukocyte Esterase 1+ (NEGATIVE) 02/05/23 13:42 Urine RBC 0-2 /HPF (0-3) 02/05/23 13:42 Urine WBC 0-2 /HPF (0-5) 02/05/23 13:42 Ur Squamous Epith Cells Few /HPF (NEGATIVE) 02/05/23 13:42 Calcium Oxalate Crystal Numerous /HPF (NEGATIVE) 02/05/23 13:42 Amorphous Sediment 2+ /HPF (NEGATIVE) 02/05/23 13:42 Urine Bacteria Trace /HPF (NEGATIVE) 02/05/23 13:42 Hyaline Casts Numerous /LPF (NEGATIVE) 02/05/23 13:42 Urine Mucus Many /HPF (NEGATIVE) 02/05/23 13:42 Ur Culture Indicated? No/not indicated 02/05/23 13:42 Salicylates 4.1 mg/dL (2.8-20) 02/05/23 13:32 Urine Opiates Screen Negative (NEG=<300) 02/05/23 13:42 Urine Methadone Screen Negative (NEG=<300) 02/05/23 13:42 Acetaminophen 0.0 ug/mL (10-30) L 02/05/23 13:32 Ur Barbiturates Screen Negative (NEG=<200) 02/05/23 13:42 Ur Phencyclidine Scrn Negative (NEG=<25) 02/05/23 13:42 Ur Amphetamines Screen Negative (NEG=<1000) 02/05/23 13:42 U Benzodiazepines Scrn Negative (NEG=<200) 02/05/23 13:42 Urine Cocaine Screen Negative (NEG=<300) 02/05/23 13:42 U Marijuana (THC) Screen Positive (NEG=<50) A 02/05/23 13:42 Ethyl Alcohol mg/dL < 3 mg/dL (0-19.9) 02/05/23 13:32 Cr 3.4, CK 1,240. EKG Rate: 77 [place]: Normal Rhythm: NSR Hypertrophy: LVH ST: Nonsp Opioid Opioid Risk Tool Age (Ramin box if 16-45): Yes History of Preadolescent Sexual Abuse: No Total: 1 Total Score Risk Category: Low Risk Copyright: Jase ELIZABETH predicting aberrant behaviors Discharge Plan Diagnosis Discharge Problem: Acute kidney injury (nontraumatic), Rhabdomyolysis Discharge Plan Patient Disposition: 09 ADMITTED INPATIENT Condition: Stable Prescriptions: No Action [facility] Concerns: Post Hospitalization: new medications and changes needed to prevent readmission or further decline. Pt educated and given instructions on all concerns. Plan of Treatment: Continue with present treatment and follow up plan. Pt is to keep follow up appointment as instructed and take medications as ordered. Follow ups/Referrals Follow ups/Referrals: N[facility],None [Primary Care Provider] - 3 days
[2023-02-05] MEDS ORDERED: NS 1,000 ML IV 1,000 ML IV ONE ×2 (13:35→14:48)
[2023-02-05] MEDS ORDERED: NS 1,000 ML IV 1,000 ML ONE ×2 (13:37→14:47)
--- NOTE | 2023-02-05 13:40 | EKG ---
Test Reason : syncope Blood Pressure : */* mmHG Vent. Rate : 77 BPM Atrial Rate : 77 BPM P-R Int : 138 ms QRS Dur : 100 ms QT Int : 386 ms P-R-T Axes : 67 67 57 degrees QTc Int : 436 ms Normal sinus rhythm Moderate voltage criteria for LVH, may be normal variant ( Sokolow-Berger , [place] product ) Nonspecific T wave abnormality Abnormal ECG No previous ECGs available Confirmed by Herb Mckeon MD ([id number]) on 02/05/2023 2:50:31 PM Referred By: Confirmed By: Herb Mckeon MD
[2023-02-05 13:52] LABS: BASOPHILS % (AUTO) 0.3 % (0.2-1.0); EOSINOPHILS % (AUTO) 0.4 % (0.9-2.9); HEMATOCRIT 47.2 % (42.0-54.0); HEMOGLOBIN 16.3 g/dL (13.5-18.0); LYMPHOCYTES % (AUTO) 18.6 % (21.0-51.0); MEAN CORPUSCULAR HEMOGLOBIN 30.8 pg (27.0-34.0); MEAN CORPUSCULAR HGB CONC 34.5 g/dL (33.0-35.0); MEAN CORPUSCULAR VOLUME 89.4 fL (80.0-100.0); MEAN PLATELET VOLUME 8.1 fL (7.4-11.0); MONOCYTES # (AUTO) 0.8 x10^3/uL (0.3-0.8); MONOCYTES % (AUTO) 7.3 % (0.0-13.0); NEUTROPHILS # (AUTO) 7.8 x10^3/uL (2.2-4.8); NEUTROPHILS % (AUTO) 73.4 % (42.0-75.0); PLATELET COUNT 287 X10^3/uL (150.0-450.0); RED BLOOD COUNT 5.28 X10^6/uL (4.7-6.0); WHITE BLOOD COUNT 10.6 X10^3/uL (3.6-10.0)
[2023-02-05 13:53] LABS: BILIRUBIN,URINE 1+ (NEGATIVE); BLOOD/HEMOGLOBIN,URINE NEGATIVE (NEGATIVE); GLUCOSE, URINE NEGATIVE (NEGATIVE); KETONES,URINE 1+ (NEGATIVE); LEUKOCYTE ESTERASE ,URINE 1+ (NEGATIVE); NITRITES,URINE NEGATIVE (NEGATIVE); PROTEIN,URINE 2+ (NEGATIVE); UROBILINOGEN,URINE 1+ (NORMAL)
[2023-02-05 13:54] LABS: COLOR,URINE DARK YELLOW (YELLOW)
[2023-02-05 13:55] LABS: APPEARANCE,URINE HAZY (CLEAR)
[2023-02-05 14:11] LABS: SALICYLATE 4.1 mg/dL (2.8-20)
[2023-02-05 14:14] LABS: ALANINE AMINOTRANSFERASE 24 Units/L (12-78); ALBUMIN 4.4 g/dL (3.4-5.0); ALKALINE PHOSPHATASE 89 Units/L (46-116); ASPARTATE AMINO TRANSFERASE 37 Units/L (15-37); BLOOD UREA NITROGEN 32 mg/dL (7-18); CALCIUM 9.5 mg/dL (8.5-10.1); CARBON DIOXIDE 27.4 mmol/L (21-32); CHLORIDE 96 mmol/L (98-107); COR NA(FOR HYPERGLY) 138 mmol/L (136-145); GLUCOSE 114 mg/dL (65-99); LIPASE 120 Units/L (73-393); POTASSIUM 3.6 mmol/L (3.5-5.1); SODIUM 138 mmol/L (136-145); TOTAL PROTEIN 9.4 g/dL (6.4-8.2); eGFR NON BLACK RACES 21 (>60)
[2023-02-05 14:16] LABS: BACTERIA,URINE TRACE /HPF (NEGATIVE); RBC,URINE 0-2 /HPF (0-3); SQUAMOUS EPITHELIAL CELL,UR FEW /HPF (NEGATIVE)
[2023-02-05 14:16] LABS: CREATINE KINASE 1240 Units/L (39-308)
[2023-02-05 14:17] LABS: CALCIUM OXALATE CRYSTALS,UR NUMEROUS /HPF (NEGATIVE)
[2023-02-05 14:17] LABS: BLOOD ALCOHOL < 3 mg/dL (0-19.9)
[2023-02-05 14:18] LABS: HYALINE CASTS, URINE NUMEROUS /LPF (NEGATIVE)
--- NOTE | 2023-02-05 14:38 | RAD ---
HISTORYSYNCOPESTUDYCHEST, 1 [id number]/29/2022.TECHNIQUEPA or AP view of the chestFINDINGSThe cardiac and mediastinal contours are within normal limits. The lungs are clear without focal consolidation or segmental collapse. No pleural effusion or pneumothorax.IMPRESSIONNo acute pulmonary process.Electronically signed by: Chauncey Sigala (Feb 05, 2023 14:36:36)
[2023-02-05] MEDS: NS 1,000 ML IV 1,000 ML IV SCH ×2 (17:19→22:41)
--- NOTE | 2023-02-05 18:03 | DR.H&P ---
H&P - History & Physical for Day of: H&P Date: 02/05/23 - Chief Complaint Chief Complaint: passed out - History of Present Illness History of Present Illness: pt is 47 M, ER admission, pt states he was in the heat all day mowing grass after that he smoked some bhavna and drunk a couple liquor drinks. After smoking the bhavna he started feeling hot sweaty and weak and passed out and vomiting. pt denies any suicidal ideations or homeicidal minna ations states he just wants to detox. pt also states he feels like he has been worthless and very depressed. - Past Medical History Past Medical History: Hypertension Additional Medical History: illicit drug abuse - Past Surgical History Surgical History: Other - Family History Family Medical History: Hypertension - Social History Does patient currently use any type of tobacco product: Yes Have you used tobacco products in the last 12 months: Yes Type of Tobacco Use: Cigarettes How many years tobacco product used: 20 Does any household member use tobacco: No Alcohol Use: DAILY Drug Use: Marijuana - Review of Systems Constitutional: Malaise Eyes: No Symptoms Reported ENT: No Symptoms Reported Respiratory: No Symptoms Reported Cardiovascular: No Symptoms Reported Gastrointestinal: Nausea Genitourinary: No Symptoms Reported Musculoskeletal: Back Pain Skin: No Symptoms Reported Neurological: No Symptoms Reported - Physical Exam Vital Signs: Vital Signs Temperature 98.5 F Temperature 99.0 F Pulse Rate [Right Brachial] 78 Pulse Rate 97 Respiratory Rate 18 Respiratory Rate 20 Respiratory Rate 18 Blood Pressure [Right Arm] 144/91 Blood Pressure 125/84 O2 Sat by Pulse Oximetry 96 O2 Sat by Pulse Oximetry 98 Oriented: Normal Eyes: Normal Ear: Normal Nose: Normal Throat: Normal Respiratory: RLL Diminished, LLL Diminished Cardiovascular: Normal : Normal Auscultation: Bowel Sounds: Normal Palpation: Normal Tenderness: Normal Skin: Decreased Turgur Musculoskeletal: Normal Psychiatric: Anxiety Affect: Anxious Speech Pattern: Clear, Appropriate - Assessment/Plan (1) Acute kidney injury (nontraumatic) Status: Acute Plan: ADMIT, IV HYDRATION. CARDIAC MONITORING. I&OS, BP CONTROL. VERIFY HOME MEDICATIONS. REPEAT SERIAL CE, AM CBC & CMP (2) Rhabdomyolysis Status: Acute (3) Alcohol abuse Status: None (4) Anxiety disorder Status: None (5) Depression Status: None - Allergies Allergies/Adverse Reactions: Allergies Allergy/AdvReac Type Severity Reaction Status Date / Time aspirin Allergy Unknown HIVES Verified 02/05/23 17:35 - Medications Home Medications: Home Medications Medication Instructions Recorded Confirmed NK 02/05/23 02/05/23
[2023-02-06] MEDS: NS 1,000 ML IV 1,000 ML IV SCH ×5 (02:09→20:11)
[2023-02-06 06:12] LABS: BASOPHILS % (AUTO) 0.4 % (0.2-1.0); EOSINOPHILS # (AUTO) 0.3 x10^3/uL (0.0-0.2); EOSINOPHILS % (AUTO) 3.7 % (0.9-2.9); HEMATOCRIT 39.6 % (42.0-54.0); HEMOGLOBIN 13.5 g/dL (13.5-18.0); LYMPHOCYTES # (AUTO) 2.9 X10^3/uL (1.3-2.9); LYMPHOCYTES % (AUTO) 38.1 % (21.0-51.0); MEAN CORPUSCULAR HEMOGLOBIN 30.6 pg (27.0-34.0); MEAN CORPUSCULAR HGB CONC 34.2 g/dL (33.0-35.0); MEAN CORPUSCULAR VOLUME 89.4 fL (80.0-100.0); MEAN PLATELET VOLUME 8.4 fL (7.4-11.0); MONOCYTES # (AUTO) 0.4 x10^3/uL (0.3-0.8); MONOCYTES % (AUTO) 5.6 % (0.0-13.0); NEUTROPHILS % (AUTO) 52.2 % (42.0-75.0); PLATELET COUNT 211 X10^3/uL (150.0-450.0); RED BLOOD COUNT 4.43 X10^6/uL (4.7-6.0); RED CELL DISTRIBUTION WIDTH 15.2 % (11.6-16.5); WHITE BLOOD COUNT 7.6 X10^3/uL (3.6-10.0)
[2023-02-06 06:16] LABS: ALANINE AMINOTRANSFERASE 17 Units/L (12-78); ALBUMIN 2.8 g/dL (3.4-5.0); ALKALINE PHOSPHATASE 73 Units/L (46-116); ASPARTATE AMINO TRANSFERASE 30 Units/L (15-37); BLOOD UREA NITROGEN 16 mg/dL (7-18); CALCIUM 7.6 mg/dL (8.5-10.1); CARBON DIOXIDE 24.6 mmol/L (21-32); CHLORIDE 108 mmol/L (98-107); COR CA(FOR HYPOALB) 8.6 mg/dL (8.5-10.1); CREATININE 1.17 mg/dL (0.70-1.30); GLUCOSE 92 mg/dL (65-99); POTASSIUM 3.6 mmol/L (3.5-5.1); SODIUM 141 mmol/L (136-145); TOTAL PROTEIN 6.4 g/dL (6.4-8.2); eGFR NON BLACK RACES > 60 (>60)
[2023-02-06] MEDS ORDERED: CONSULT PHARMACY - POTASSIUM & MAGNESIUM XX SCH ×2 (07:00→08:00)
[2023-02-06] MEDS ORDERED: K-DUR TAB 20 MEQ PO ONE (07:32)
[2023-02-06] MEDS: NICOTINE PATCH TD SCH (08:26)
[2023-02-06] MEDS ORDERED: K-DUR TAB 20 MEQ PO SCH (09:00)
[2023-02-06] MEDS ORDERED: ROBITUSSIN DM PO PRN (15:23)
[2023-02-06] MEDS: DUONEB 0.5 MG/3 MG (3 mL) NEB PRN (18:25)
[2023-02-06] MEDS ORDERED: COLACE CAP 100 MG PO SCH (21:00)
[2023-02-07] MEDS: NS 1,000 ML IV 1,000 ML IV SCH ×2 (02:02→09:21)
[2023-02-07 06:26] LABS: BASOPHILS % (AUTO) 0.7 % (0.2-1.0); EOSINOPHILS # (AUTO) 0.2 x10^3/uL (0.0-0.2); EOSINOPHILS % (AUTO) 3.4 % (0.9-2.9); HEMATOCRIT 37.7 % (42.0-54.0); HEMOGLOBIN 12.8 g/dL (13.5-18.0); LYMPHOCYTES # (AUTO) 2.5 X10^3/uL (1.3-2.9); LYMPHOCYTES % (AUTO) 37.5 % (21.0-51.0); MEAN CORPUSCULAR HEMOGLOBIN 30.6 pg (27.0-34.0); MEAN CORPUSCULAR VOLUME 90.1 fL (80.0-100.0); MEAN PLATELET VOLUME 8.5 fL (7.4-11.0); MONOCYTES # (AUTO) 0.5 x10^3/uL (0.3-0.8); MONOCYTES % (AUTO) 6.7 % (0.0-13.0); NEUTROPHILS # (AUTO) 3.5 x10^3/uL (2.2-4.8); NEUTROPHILS % (AUTO) 51.7 % (42.0-75.0); PLATELET COUNT 214 X10^3/uL (150.0-450.0); RED BLOOD COUNT 4.18 X10^6/uL (4.7-6.0); RED CELL DISTRIBUTION WIDTH 14.9 % (11.6-16.5); WHITE BLOOD COUNT 6.7 X10^3/uL (3.6-10.0)
[2023-02-07 06:42] LABS: ALANINE AMINOTRANSFERASE 18 Units/L (12-78); ALBUMIN 2.5 g/dL (3.4-5.0); ALKALINE PHOSPHATASE 56 Units/L (46-116); ASPARTATE AMINO TRANSFERASE 23 Units/L (15-37); BLOOD UREA NITROGEN 8 mg/dL (7-18); CALCIUM 7.4 mg/dL (8.5-10.1); CARBON DIOXIDE 25.2 mmol/L (21-32); CHLORIDE 111 mmol/L (98-107); COR CA(FOR HYPOALB) 8.6 mg/dL (8.5-10.1); CREATININE 0.86 mg/dL (0.70-1.30); GLUCOSE 90 mg/dL (65-99); POTASSIUM 4.2 mmol/L (3.5-5.1); SODIUM 142 mmol/L (136-145); TOTAL PROTEIN 5.8 g/dL (6.4-8.2); eGFR NON BLACK RACES > 60 (>60)
[2023-02-07 08:40] VITALS: RESP 20
[2023-02-07] MEDS: DUONEB 0.5 MG/3 MG (3 mL) NEB PRN (09:06)
[2023-02-07] MEDS: NICOTINE PATCH TD SCH (09:21)
[2023-02-07 11:55] VITALS: BP 144/67; PULSE 71; TEMP 97.5; O2SAT 100
== END 2023-02-07 14:00 | disposition home or self-care (01) ==
LOC: MED/SURG 13:10 → ER 13:10 → MED/SURG 15:38
PROVIDERS: ADMIT Internal Medicine; ATTEND Internal Medicine